=== PATIENT | female | born 1995 | race Caucasian/White ===

== ENCOUNTER → 2021-05-16 14:03 | Outpatient (CLI) | payer OTHER, MEDICAID, SELFPAY ==
[2021-05-16 15:38] LABS: COVID19 -Nasal RAPID POSITIVE (Negative)
== END ==
PROVIDERS: PCP Physician Assistant; Referring Provider Physician Assistant; Visit Provider Physician Assistant
DX: U07.1 COVID-19 (principal)
CPT/HCPCS: 87635

== ENCOUNTER → 2022-11-16 11:53 | Outpatient (CLI) | payer OTHER, SELFPAY ==
--- NOTE | 2022-11-16 | DI.ECHO.S_ITS ---
[facility]---------+ [facility] +---------+ : : [address] : [address] : : : : [id number] : : : : Phone: [phone]---------+ Echocardiogram Report + + :Name: GWENDOLYN JADE Study Date: 11/16/2022 Height: 71 in : :[facility] ReadingLocation: Weight: 145 lb : : Gender: Female BSA: 1.8 m2 : :: 1995 Age: 27 yrs BP: 118/70 mmHg: :Reason For Study: Rheumatic Tricuspid insufficiency : :Ordering Physician: Cecille : :Barb Cullen Performed By: Elaina Mir : :Referring: CECILLE CULLEN : + + Interpretation Summary 1) Normal left ventricular thickness, size, wall motion, and systolic function (EF 60-65%). 2) Normal right ventricular size and function. 3) There is mild tricuspid regurgitation. 4) The right ventricular systolic pressure is estimated to be at least 35.5 mmHg based on an estimated right atrial pressure of 8 mm Hg. 5) No prior Echo available for comparison. Procedure: A two-dimensional transthoracic echocardiogram with color flow and Doppler was performed. The study quality was technically good. The patient was in sinus rhythm with heart rates between 66-80 bpm during the exam. Left Ventricle: The left ventricle is normal in size and wall thickness. The ejection fraction is estimated to be 60-65%. Left ventricular systolic function appears normal without focal wall motion abnormalities. Diastolic parameters suggest probable normal left ventricular diastolic function and normal filling pressures. Right Ventricle: The right ventricle is normal in size and function. Atria: The left atrial size is normal. Right atrial size is normal. There is no Doppler evidence for an interatrial shunt. Mitral Valve: The mitral valve leaflets appear mildly thickened, but open well. The mitral valve leaflets appear to open well. There is no mitral regurgitation noted. Aortic Valve: The aortic valve is normal in structure and function. No aortic regurgitation is present. Tricuspid Valve: The tricuspid valve is normal. There is mild tricuspid regurgitation. The right ventricular systolic pressure is estimated to be at least 35.5 mmHg based on an estimated right atrial pressure of 8 mm Hg. Pulmonic Valve: The pulmonic valve leaflets are thin and pliable; valve motion is normal. There is no pulmonic valvular regurgitation. Great Vessels: The ascending aorta is normal in size. The IVC is dilated (diameter is greater than 2.1 cm) yet it collapses greater than 50% with a sniff. This suggests a right atrial pressure of 8 mm Hg. Pericardium/ Pleura There is no pericardial effusion. There is no pleural effusion. MMode/2D Measurements & Calculations LVIDd: 4.0 cm LVOT diam: 1.8 cm LVIDs: 2.5 cm Ao root diam: 2.3 cm FS: 37.5 % asc Aorta Diam: 2.3 cm EPSS: 0.20 cm Ao Arch Diam (Prox Trans): 2.5 cm IVSd: 0.80 cm LVPWd: 0.90 cm LV chun. diameter/BSA (cm/m^2): 2.2 LV sys. diameter/BSA (cm/m^2): 1.4 LA dimension: 2.9 cm RA long axis: 4.7 cm LA A4 area: 19.5 cm2 RA area: 13.4 cm2 RA vol: 32.2 ml RA : 17.5 ml/m2 IVC diam: 2.2 cm RVD1 (basal): 3.4 cm LVLs ap4: 6.5 cm LVLd ap2: 8.6 cm TAPSE_phl: 2.4 cm LVLs ap2: 6.1 cm Doppler Measurements & Calculations Ao V2 max: 162.0 cm/sec LVOT Max Darwin: 123.0 cm/sec Ao V2 mean: 102.0 cm/sec LV V1 max P.1 mmHg Ao max P.0 mmHg LV V1 VTI: 29.1 cm Ao mean P.0 mmHg CHELSEY(I,D): 2.0 cm2 Ao V2 VTI: 37.6 cm CHELSEY(V,D): 1.9 cm2 sev ratio: 0.77 CHELSEY indexed to BSA (cm^2/m^2): 1.1 MV E max darwin: 122.0 cm/sec TR max darwin: 262.0 cm/sec MV A max darwin: 50.4 cm/sec TR max P.5 mmHg MV E/A: 2.4 PA V2 max: 116.0 cm/sec Med Peak E' Darwin: 13.3 cm/sec PA V2 mean: 74.4 cm/sec E/E' med: 9.2 PA mean P.0 mmHg Lat Peak E' Darwin: 16.1 cm/sec E/E' lat: 7.6 E/e' average: 8.4 MV dec time: 0.23 sec MVA(VTI): 2.8 cm2 MV V2 mean: 54.8 cm/sec SV(LVOT): 74.1 ml MV mean P.0 mmHg MV V2 VTI: 26.8 cm AV VR_phl: 0.76 MV P1/2t-pr_phl: 66.0 msec CHELSEY(VTI)/BSA_phl: 1.1 Reading Physician:03:55 PM
== END ==
PROVIDERS: PCP Physician Assistant; Referring Provider Internal Medicine Cardiovascular Disease; Visit Provider Internal Medicine Cardiovascular Disease
DX: I07.1 Rheumatic tricuspid insufficiency (principal)
CPT/HCPCS: 93306

== ENCOUNTER → 2023-04-25 08:05 | Outpatient (CLI) | payer OTHER, SELFPAY | PROVIDERS: PCP Physician Assistant; Visit Provider Physician Assistant Medical | DX: J02.9 Acute pharyngitis, unspecified (principal) | CPT/HCPCS: 87070; 87147 ==

== ENCOUNTER → 2023-09-06 08:36 | Outpatient (CLI) | payer OTHER, SELFPAY ==
[2023-09-06 19:05] LABS: Alanine Aminotransferase 18 IU/L (<35); Albumin 4.2 g/dL (3.5-5.0); Albumin Globulin Ratio 1.5 (1.0-2.8); Alkaline Phosphatase 40 U/L (38-126); Aspartate Aminotransferase 25 IU/L (14-36); BUN Creatinine Ratio 12.5 (6-22); Bilirubin Total 0.8 mg/dL (0.2-1.3); Blood Urea Nitrogen 9 mg/dL (7-17); Calcium 10.2 mg/dL (8.4-10.2); Carbon Dioxide 29 mmol/L (22-32); Chloride 102 mmol/L (98-107); Estimated Glomerular Filt Rate > 60 mL/min (>60); Globulin 2.8 g/dL (1.7-4.1); Glucose 72 mg/dL (70-100); HEMOLYSIS < 15 (0-50); Potassium 4.2 mmol/L (3.4-5.1); Sodium 139 mmol/L (137-145)
== END ==
PROVIDERS: PCP Physician Assistant; Visit Provider Physician Assistant Medical
DX: B35.4 Tinea corporis (principal); Z79.899 Other long term (current) drug therapy; B35.3 Tinea pedis
CPT/HCPCS: 80053

== ENCOUNTER → 2025-06-10 12:24 | Outpatient (CLI) | payer OTHER, SELFPAY ==
[2025-06-10 21:53] LABS: Urine N gonorrhoeae NOT DETECTED
[2025-06-10 22:04] LABS: Urine Chlamydia NOT DETECTED
== END ==
PROVIDERS: PCP Physician Assistant; Visit Provider Physician Assistant
DX: Z11.3 Encounter for screening for infections with a predominantly sexual mode of transmission (principal)
CPT/HCPCS: 87491; 87591

== ENCOUNTER → 2025-06-12 10:24 | Outpatient (CLI) | payer OTHER, SELFPAY ==
[2025-06-12 18:53] LABS: Alanine Aminotransferase 18 IU/L (<35); Albumin 4.9 g/dL (3.5-5.0); Albumin Globulin Ratio 1.8 (1.0-2.8); Alkaline Phosphatase 40 U/L (38-126); Blood Urea Nitrogen 12 mg/dL (7-17); Calcium 10.0 mg/dL (8.4-10.2); Carbon Dioxide 26 mmol/L (22-32); Chloride 102 mmol/L (98-107); Estimated Glomerular Filt Rate > 60 mL/min (>60); Globulin 2.8 g/dL (1.7-4.1); Glucose 76 mg/dL (70-99); HEMOLYSIS < 15 (0-50); Potassium 4.3 mmol/L (3.4-5.1); Sodium 137 mmol/L (137-145); Total Protein 7.7 g/dL (6.3-8.2)
[2025-06-12 19:05] LABS: Vitamin D 25 Hydroxy (D3) 88.7 ng/mL (30.0-100.0)
[2025-06-12 19:10] LABS: Add Manual Diff / Slide Review NO; Hematocrit 40.6 % (36-46); Hemoglobin 13.9 g/dL (12.0-16.0); Lymphocytes Absolute Auto 1500 /uL (1100-4500); Mean Corpuscular HGB Conc 34.2 % (30-36); Mean Corpuscular Hemoglobin 32.6 PG (26-34); Mean Corpuscular Volume 95.2 fL (80-100); Platelet Count 304 X10^3/uL (150-400)
[2025-06-12 19:23] LABS: TSH w/ Reflex to FT4 1.34 uIU/mL (0.47-4.68)
[2025-06-13 15:11] LABS: Hepatitis B Surface Antigen NEGATIVE s/c (NEGATIVE)
[2025-06-13 15:30] LABS: HIV 1 & 2 Ab/Ag 4th Gen Combo NEGATIVE (NEGATIVE); Hep C Virus Ab w/Reflex Quant NEGATIVE s/c (NEGATIVE)
[2025-06-14 09:08] LABS: HSV 1 IGG Non Reactive (Non Reactive); HSV 2 IGG Non Reactive (Non Reactive)
== END ==
PROVIDERS: PCP Physician Assistant; Visit Provider Physician Assistant
DX: Z11.3 Encounter for screening for infections with a predominantly sexual mode of transmission (principal); Z79.899 Other long term (current) drug therapy; R42 Dizziness and giddiness; F33.42 Major depressive disorder, recurrent, in full remission; F32.4 Major depressive disorder, single episode, in partial remission
CPT/HCPCS: 80053; 82306; 84443; 85025; 86592; 86695; 86696; 86803; 87340; 87389

== ENCOUNTER → 2025-07-20 15:33 | Outpatient (CLI) | payer OTHER, SELFPAY | PROVIDERS: PCP Physician Assistant; Visit Provider Physician Assistant | DX: R30.0 Dysuria (principal); R31.9 Hematuria, unspecified | CPT/HCPCS: 87086 ==